=== PATIENT | male | born 1950 | race Caucasian/White ===

== ENCOUNTER 2018-02-24 12:03 | Observation (INO) | payer OTHER, MEDICARE ==
[~2018-02-24] VITALS: Ht 185.4 cm; Wt 104.7 kg
[2018-02-24 13:32] VITALS: BP 147/98
[2018-02-24] MEDS ORDERED: ATOR20TA9 PO (13:58)
[2018-02-24] MEDS ORDERED: PANT40TA5 PO (13:58)
[2018-02-24] MEDS ORDERED: FENO145T32 PO (13:58)
[2018-02-24] MEDS ORDERED: LISI-170 PO (13:58)
[2018-02-24] MEDS ORDERED: ASPI-621 PO (13:58)
[2018-02-24] MEDS ORDERED: ONDANSETRON ODT 4 MG PO PRN (15:00)
[2018-02-24] MEDS ORDERED: NITROGLYCERIN 0.4 MG BOTTLE (25 TABS) SL PRN (15:00)
[2018-02-24] MEDS ORDERED: ENOXAPARIN 40 MG/0.4 ML SQ SCH (15:00)
[2018-02-24] MEDS ORDERED: hydrALAzine 20 MG/ML, 1ML IVPush PRN (15:00)
[2018-02-24] MEDS: ACETAMINOPHEN 325 MG TABLET PO PRN (15:15)
[2018-02-24 15:56] LABS: BASOPHILS # (AUTO) 0.03 x10^3/uL (0-0.1); BASOPHILS % (AUTO) 1 % (0-1); EOSINOPHILS % (AUTO) 2 % (1-7); LYMPHOCYTES # (AUTO) 2.24 x10^3/uL (1-3.4); LYMPHOCYTES % (AUTO) 45 % (22-44); MD NO; MEAN CORPUSCULAR HEMOGLOBIN 31.6 pg (27.5-34.5); MEAN CORPUSCULAR HGB CONC 34.1 g/dL (33.2-36.2); MEAN CORPUSCULAR VOLUME 92.8 fL (81-97); MEAN PLATELET VOLUME 8.4 fL (7.4-10.4); MONOCYTES # (AUTO) 0.36 x10^3/uL (0.2-0.8); MONOCYTES % (AUTO) 7 % (2-9); NEUTROPHILS # (AUTO) 2.23 x10^3/uL (1.8-6.8); NEUTROPHILS % (AUTO) 45 % (42-75); PLATELET COUNT 209 x10^3/uL (130-400); RED BLOOD COUNT 4.87 x10^6/uL (4.38-5.82); RED CELL DISTRIBUTION WIDTH 13.3 % (9.4-14.8)
[2018-02-24 16:05] LABS: ALBUMIN 3.6 g/dL (3.4-5.0); ANION GAP 9 mmol/L (5-15); CALCIUM 8.5 mg/dL (8.5-10.1); CHLORIDE 107 mmol/L (98-107)
[2018-02-24 16:09] LABS: ALANINE AMINOTRANSFERASE 94 U/L (12-78); ALKALINE PHOSPHATASE 67 U/L (45-117); BILIRUBIN,TOTAL 0.6 mg/dL (0.2-1.0); CHOL/HDL RATIO 5.7; CHOLESTEROL, TOTAL 164 mg/dL (140-239); CREATININE 1.17 mg/dL (0.7-1.3); HDL CHOL % 18 % (26-37); HDL CHOLESTEROL (DIRECT) 29 mg/dL (40-60); TOTAL PROTEIN 6.4 g/dL (6.4-8.2); TRIGLYCERIDES 487 mg/dL (50-200); TROPONIN I 0.349 ng/mL (0.000-0.045)
[2018-02-24 16:14] LABS: FREE T4 (FREE THYROXINE) 1.12 ng/dL (0.76-1.46)
[2018-02-24 18:52] VITALS: BP_SYST 163; BP_SYST 166; BP_DIAS 105; BP_DIAS 96
[2018-02-24] MEDS: LISINOPRIL 20 MG TABLET PO SCH (20:18)
[2018-02-24] MEDS: ATORVASTATIN 20 MG TABLET PO SCH (20:18)
[2018-02-24 21:28] LABS: TROPONIN I 0.395 ng/mL (0.000-0.045)
[2018-02-25 01:11] VITALS: BP 155/98
[2018-02-25 03:30] LABS: TROPONIN I 0.347 ng/mL (0.000-0.045)
[2018-02-25 09:05] VITALS: BP 126/83
[2018-02-25] MEDS: PANTOPROZOLE 40MG TABLET PO SCH (09:08)
[2018-02-25] MEDS: ASPIRIN 81 MG TABLET EC PO SCH (09:08)
[2018-02-25] MEDS: ACETAMINOPHEN 325 MG TABLET PO PRN (09:09)
[2018-02-25] MEDS: LISINOPRIL 20 MG TABLET PO SCH ×2 (09:09→21:12)
[2018-02-25] MEDS ORDERED: MIDAZOLAM 1 MG/ML, 5ML ONE (12:56)
[2018-02-25] MEDS ORDERED: VERAPAMIL 2.5 MG/ML, 2ML ONE (12:56)
[2018-02-25] MEDS ORDERED: TICAGRELOR 90 MG TABLET ONE (12:56)
[2018-02-25] MEDS ORDERED: FENTANYL PF 100 MCG/2ML ONE ×2 (12:56→13:42)
[2018-02-25] MEDS ORDERED: BIVALIRUDIN 250 MG ONE (12:57)
[2018-02-25] MEDS ORDERED: LIDOCAINE-MPF 2% ,5ML ONE (12:57)
[2018-02-25] MEDS ORDERED: HEPARIN 1,000 UNITS/ML, 10ML ONE (12:57)
[2018-02-25] MEDS ORDERED: DIPHENHYDRAMINE 50 MG/ML, 1ML ONE (13:31)
[2018-02-25] MEDS ORDERED: MIDAZOLAM 1 MG/ML, 2ML ONE (13:41)
[2018-02-25] MEDS ORDERED: PRASUGREL 10 MG TABLET ONE (14:25)
[2018-02-25 14:52] VITALS: BP 148/90
[2018-02-25] MEDS ORDERED: BIVALIRUDIN 250 MG in DEXTROSE 5% 50 ML IV SCH (15:00)
[2018-02-25] MEDS: SODIUM CHLORIDE 0.9% 1,000 ML IV SCH ×2 (15:56→23:00)
[2018-02-25 20:00] VITALS: BP 165/99
[2018-02-25 21:09] LABS: TROPONIN I 0.431 ng/mL (0.000-0.045)
[2018-02-25] MEDS: ATORVASTATIN 20 MG TABLET PO SCH (21:11)
[2018-02-25] MEDS: FENOFIBRATE 145 MG TABLET PO SCH (21:12)
[2018-02-26 03:45] VITALS: BP 139/97
[2018-02-26 05:35] LABS: BASOPHILS # (AUTO) 0.03 x10^3/uL (0-0.1); BASOPHILS % (AUTO) 0 % (0-1); EOSINOPHILS # (AUTO) 0.16 x10^3/uL (0-0.4); EOSINOPHILS % (AUTO) 2 % (1-7); LYMPHOCYTES % (AUTO) 36 % (22-44); MD NO; MEAN CORPUSCULAR HEMOGLOBIN 32.3 pg (27.5-34.5); MEAN CORPUSCULAR HGB CONC 34.7 g/dL (33.2-36.2); MEAN CORPUSCULAR VOLUME 93.2 fL (81-97); MEAN PLATELET VOLUME 8.1 fL (7.4-10.4); MONOCYTES # (AUTO) 0.54 x10^3/uL (0.2-0.8); MONOCYTES % (AUTO) 7 % (2-9); NEUTROPHILS % (AUTO) 54 % (42-75); PLATELET COUNT 208 x10^3/uL (130-400); RED BLOOD COUNT 5.35 x10^6/uL (4.38-5.82); RED CELL DISTRIBUTION WIDTH 12.8 % (9.4-14.8)
[2018-02-26 05:44] LABS: ALBUMIN 3.8 g/dL (3.4-5.0); ANION GAP 9 mmol/L (5-15); CALCIUM 8.6 mg/dL (8.5-10.1); CHLORIDE 108 mmol/L (98-107)
[2018-02-26 05:48] LABS: ALANINE AMINOTRANSFERASE 81 U/L (12-78); ALKALINE PHOSPHATASE 56 U/L (45-117); CREATININE 1.16 mg/dL (0.7-1.3); TOTAL PROTEIN 6.9 g/dL (6.4-8.2)
[2018-02-26] MEDS: SODIUM CHLORIDE 0.9% 1,000 ML IV SCH (07:00)
[2018-02-26 08:00] VITALS: BP_SYST 137; BP_SYST 155; BP_DIAS 64; BP_DIAS 90
[2018-02-26] MEDS ORDERED: PRASUGREL 10 MG TABLET PO SCH (09:00)
[2018-02-26] MEDS: FENOFIBRATE 145 MG TABLET PO SCH (09:37)
[2018-02-26] MEDS: ASPIRIN 81 MG TABLET EC PO SCH (09:37)
[2018-02-26] MEDS: LISINOPRIL 20 MG TABLET PO SCH (09:38)
[2018-02-26] MEDS: PANTOPROZOLE 40MG TABLET PO SCH (09:38)
[2018-02-26] MEDS ORDERED: PRAS10TA4 PO (10:51)
== END 2018-02-26 12:00 | disposition home or self-care (01) ==
LOC: INTOOBSV 13:04 → 5SO 13:04 → DCLOUNGE 02-26 11:38
PROVIDERS: ADMIT Family Medicine; ATTEND Family Medicine
DX: I25.110 Atherosclerotic heart disease of native coronary artery with unstable angina pectoris (principal); E78.1 Pure hyperglyceridemia; E78.5 Hyperlipidemia, unspecified; I10 Essential (primary) hypertension; Z87.891 Personal history of nicotine dependence; Z82.3 Family history of stroke; Z82.49 Family history of ischemic heart disease and other diseases of the circulatory system
CPT/HCPCS: 36415; 80053; 80061; 83735; 84100; 84439; 84443; 84484; 85025; 93005; 93458; 93571; 93572; 96372; 99156; 99157; C1725; C1760; C1769; C1874; C1887; C1894; C9600; C9601; G0378; J0583; J1200; J1650; J2250; J3010; J3490; J7030; Q9967; J1644